=== PATIENT | female | born 1960 | race African-American/Black ===

== ENCOUNTER 2020-01-07 22:46 | Inpatient (IN) | payer OTHER ==
[~2020-01-07] VITALS: Ht 154.9 cm; Wt 103.6 kg
[2020-01-08 00:12] LABS: BASOPHIL % 0.4 % (0-2); PLATELET COUNT 356 x10^3mcL (130-400)
[2020-01-08 00:22] LABS: CALCIUM 8.5 mg/dL (8.5-10.1); CARBON DIOXIDE 21.9 mmol/L (21-32); CREATININE SERUM 1.2 mg/dL (0.6-1.0); POTASSIUM SERUM 3.1 mmol/L (3.5-5.1)
[2020-01-08 00:32] LABS: ALBUMIN 3.6 g/dL (3.4-5.0); BILIRUBIN TOTAL 0.4 mg/dL (0.20-1.00); TOTAL PROTEIN, SERUM 7.9 g/dL (6.4-8.2)
[2020-01-08] MEDS ORDERED: PROAIR HFA8.5 GM INH (00:57)
[2020-01-08 02:18] VITALS: BP 123/76
[2020-01-08 02:51] LABS: CHOLESTEROL/HDL RATIO 3.6
[2020-01-08 02:57] LABS: FREE T4 1.06 ng/dL (0.76-1.46); FREE THYROXINE INDEX 1.9 ug/dL (1.4-4.5); T4(THYROXINE) 5.8 ug/dL (4.7-13.3)
[2020-01-08 03:18] LABS: T3 TOTAL 1.2 ng/mL
[2020-01-08 06:44] VITALS: BP 139/86
[2020-01-08 07:06] LABS: microscopic required? YES; urine erythrocyte TRACE (NEGATIVE)
[2020-01-08 08:02] LABS: CALCIUM 9.1 mg/dL (8.5-10.1); CARBON DIOXIDE 27.6 mmol/L (21-32); CHLORIDE SERUM 106 mmol/L (98-107); CREATININE SERUM 0.9 mg/dL (0.6-1.0); GFR1 > 60 mL/min; GLUCOSE SERUM 90 mg/dL (74-106); POTASSIUM SERUM 4.5 mmol/L (3.5-5.1); SODIUM SERUM 142 mmol/L (136-145)
[2020-01-08 08:22] LABS: AMPHETAMINE QUAL UR NONE DETECTED (See below)
[2020-01-08 08:24] LABS: BASOPHIL % 0.5 % (0-2); PLATELET COUNT 324 x10^3mcL (130-400)
[2020-01-08 08:42] VITALS: BP 126/70
[2020-01-08 13:16] VITALS: BP 113/61
[2020-01-08 17:20] VITALS: BP 106/60
[2020-01-08 20:35] VITALS: BP 127/74
[2020-01-09 05:30] VITALS: BP 122/70
[2020-01-09 06:54] LABS: BASOPHIL % 0.5 % (0-2); PLATELET COUNT 386 x10^3mcL (130-400)
[2020-01-09 07:25] LABS: CALCIUM 9.8 mg/dL (8.5-10.1); CARBON DIOXIDE 26.9 mmol/L (21-32); CREATININE SERUM 1.1 mg/dL (0.6-1.0); MAGNESIUM 2.2 mg/dL (1.8-2.4); PHOSPHOROUS 4.4 mg/dL (2.5-4.9); POTASSIUM SERUM 3.8 mmol/L (3.5-5.1)
[2020-01-09 08:16] VITALS: BP 117/63
[2020-01-09 12:24] VITALS: BP 107/64
[2020-01-09 16:45] VITALS: BP 97/60
[2020-01-09 20:51] VITALS: BP 108/69
[2020-01-10 05:10] VITALS: BP 121/76
[2020-01-10 07:17] LABS: BASOPHIL % 0.8 % (0-2); PLATELET COUNT 360 x10^3mcL (130-400)
[2020-01-10 07:52] VITALS: BP 105/57
[2020-01-10 10:36] LABS: CALCIUM 9.8 mg/dL (8.5-10.1); CARBON DIOXIDE 22.2 mmol/L (21-32); CHLORIDE SERUM 105 mmol/L (98-107); CREATININE SERUM 0.9 mg/dL (0.6-1.0); GFR1 > 60 mL/min; GLUCOSE SERUM 79 mg/dL (74-106); MAGNESIUM 2.2 mg/dL (1.8-2.4); PHOSPHOROUS 4.8 mg/dL (2.5-4.9); POTASSIUM SERUM 3.4 mmol/L (3.5-5.1); SODIUM SERUM 141 mmol/L (136-145)
[2020-01-10] MEDS ORDERED: LIPI10 PO (11:05)
[2020-01-10] MEDS ORDERED: ZES5 PO (11:05)
[2020-01-10] MEDS ORDERED: ECO81 PO (11:05)
[2020-01-10] MEDS ORDERED: COR6 PO (11:05)
[2020-01-10] MEDS ORDERED: L40 PO (11:06)
[2020-01-10 11:50] VITALS: BP 106/61
[2020-01-10 12:07] VITALS: BP 106/61
== END 2020-01-10 13:00 | disposition home or self-care (01) | DRG 291 ==
LOC: ED 22:46 → DU 01-08 00:56 → MU 01-09 14:27
PROVIDERS: Emergency Medicine; Internal Medicine; ADMIT Internal Medicine
DX: I11.0 Hypertensive heart disease with heart failure (principal); N17.0 Acute kidney failure with tubular necrosis; I16.1 Hypertensive emergency; J45.20 Mild intermittent asthma, uncomplicated; I42.0 Dilated cardiomyopathy; I50.23 Acute on chronic systolic (congestive) heart failure; E87.6 Hypokalemia; E02 Subclinical iodine-deficiency hypothyroidism; E78.5 Hyperlipidemia, unspecified; Z79.51 Long term (current) use of inhaled steroids; Z95.810 Presence of automatic (implantable) cardiac defibrillator; Z79.899 Other long term (current) drug therapy
CPT/HCPCS: 83880; 84439; 85378; 87804; G0378; J1644; J1940; J3490; J7030; Q0092